=== PATIENT | female | born 1950 | race Caucasian/White ===

== ENCOUNTER 2019-06-09 05:56 | Day surgery (SDC) | payer MEDICARE, OTHER ==
[2019-06-09] VITALS (9 sets, daily range): BP systolic 110–129; BP diastolic 58–67; PULSE 64–80; TEMP 97.6
[~2019-06-09] VITALS: Ht 162.6 cm; Wt 78.8 kg
[2019-06-09] MEDS ORDERED: TRICOR145 MG PO (06:40)
[2019-06-09] MEDS ORDERED: ASPIRIN E.C. 8181 MG PO (06:40)
[2019-06-09] MEDS ORDERED: OS-CAL 500 + D1 TAB PO (06:41)
[2019-06-09 06:57] LABS: HEMATOCRIT 39.5 % (37.0-47.0); HEMOGLOBIN 12.7 g/dl (12.5-16.0); MEAN CELL VOLUME 93 fl (80.0-100.0); MEAN CORPUSCULAR HEMOGLOBIN 30 pg (27.0-31.0); MEAN CORPUSCULAR HGB CONC 32 g/dl (33.0-37.0); MEAN PLATELET VOLUME 9.1 fl (7.4-10.4); PLATELET COUNT 301 K/mm3 (130-400); RED BLOOD COUNT 4.27 M/mm3 (4.10-5.30); REDCELL DISTRIBUTION WIDTH-CV 12.8 % (11.5-14.5)
[2019-06-09 07:03] LABS: INR 1.1 (0.8-3.0); PROTHROMBIN TIME 12.3 SECONDS (9.7-12.8)
[2019-06-09] MEDS ORDERED: VITAMIN D32000 IU PO (07:08)
[2019-06-09] MEDS ORDERED: EPA FISH OIL1 SGL PO (07:09)
[2019-06-09] MEDS ORDERED: VITAMIN C500 MG PO (07:09)
[2019-06-09] MEDS ORDERED: XALATAN EYE DROPS OU (07:10)
[2019-06-09] MEDS ORDERED: ZESTRIL 10MG10 MG PO (07:10)
[2019-06-09] MEDS ORDERED: ZOCOR 20MG20 MG PO (07:11)
[2019-06-09] MEDS ORDERED: GLUCOPHAGE1000 MG PO (07:12)
[2019-06-09] MEDS ORDERED: HCTZ 25MG TAB25 MG PO (07:12)
[2019-06-09] MEDS ORDERED: FLONASEALLERGY NS (07:13)
[2019-06-09] MEDS ORDERED: MAGNESIUM250 M1 PO (07:13)
[2019-06-09] MEDS ORDERED: ATROVENTNS0.03% NS (07:14)
[2019-06-09] MEDS ORDERED: ZYRTEC 10MG10 MG PO (07:15)
[2019-06-09 07:18] LABS: CALCIUM 9.8 mg/dL (8.4-10.2); CREATININE, serum 0.52 (0.52-1.25); POTASSIUM 3.9 mmol/L (3.4-5.0)
--- NOTE | 2019-06-09 08:37 | NUR ---
SEE RINA FOR ALL MEDICATION ADMINISTRATION AND INTRA/POST SEDATION ASSESSMENT
--- NOTE | 2019-06-09 09:12 | NUR ---
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 Alert and oriented, denies pain and needs at this time. Right wrist TRband with 15 cc air CD&I, good pulses and cap refill < 3 secs noted. VSS. bedside
--- NOTE | 2019-06-09 11:05 | NUR ---
3 MLS out of TRband
--- NOTE | 2019-06-09 11:19 | NUR ---
INT discontinued intact. TRband deflated of 15 cc air over 20 minutes. Right wrist pressure dressing applied.
== END 2019-06-09 11:30 | disposition home or self-care (01) ==
LOC: COL.CAR 05:56
PROVIDERS: Internal Medicine Cardiovascular Disease
DX: I25.10 Atherosclerotic heart disease of native coronary artery without angina pectoris (principal); I10 Essential (primary) hypertension; E78.5 Hyperlipidemia, unspecified; E11.9 Type 2 diabetes mellitus without complications; J44.9 Chronic obstructive pulmonary disease, unspecified; Z79.82 Long term (current) use of aspirin; Z79.84 Long term (current) use of oral hypoglycemic drugs; Z79.51 Long term (current) use of inhaled steroids; Z90.710 Acquired absence of both cervix and uterus; Z83.3 Family history of diabetes mellitus; Z82.3 Family history of stroke; Z82.49 Family history of ischemic heart disease and other diseases of the circulatory system; Z87.891 Personal history of nicotine dependence
CPT/HCPCS: J1644; J2250; J3010; Q9967